=== PATIENT | male | born 1950 | race Caucasian/White ===

== ENCOUNTER 2023-09-24 10:44 | Emergency (ER) | payer MEDICARE ==
[~2023-09-24] VITALS: Ht 175.3 cm; Wt 56.3 kg
[~2023-09-24 10:44] MED LIST: NO HOME MEDS
[2023-09-24] MEDS ORDERED: ketorolac trometh inj. 60 MG/2 ML VIAL IM ONE (12:30)
[2023-09-24] MEDS: ketorolac trometh. 30mg/ml inj. IM ONE (12:44)
[2023-09-24 12:58] VITALS: BP 147/93; PULSE 57; RESP 17; TEMP 98.7; O2SAT 100
== END 2023-09-24 13:10 | disposition home or self-care (01) ==
LOC: ER 10:44
DX: S29.9XXA Unspecified injury of thorax, initial encounter (principal); V80.010A Animal-rider injured by fall from or being thrown from horse in noncollision accident, initial encounter; Y93.89 Activity, other specified; Y92.89 Other specified places as the place of occurrence of the external cause; Y99.8 Other external cause status
CPT/HCPCS: 71101; 96372; 99284; J1885